=== PATIENT | female | born 1960 | race Caucasian/White ===

== ENCOUNTER → 2017-07-09 | Outpatient (CLI) | payer OTHER ==
[~2017-07-09] MED LIST: ACID REDUCER200 MG PO; ACYCLOVIR 400400 MG PO; AMITRIPTYLINE H10 M3 PO; COZAAR 25 MG TA25 MG PO; EFFEXOR XR75 MG PO; HYDROCODONE-AP1 EAC6 PO; HYDROXYCHLOROQ200 M1 PO; LEFLUNOMIDE PO; MOBIC15 MG PO; NORCO 5-325 TA1 EACH PO; NORVASC2.5 M1 PO; NORVASC5 MG PO; TRAMADOL 50 MG50 MG PO; cbd oil; tumeric; vitamin d3
--- NOTE | 2017-07-22 14:36 | PAINCON ---
[facility] [address] [place] [address] PAIN MANAGEMENT CONSULTATION Name: SANDI ESPINOZA Room: [facility] Camelia#: [id number] Admission: 07/09/17 Attend Phys: Frank Metz MD Discharge: Date of : 62 Report #: [id number] THIS REPORT FOR: //name// CC: Humera Rosenthal DATE OF SERVICE: 07/09/2017 CHIEF COMPLAINT: "Pain in the legs. 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 She has been having pain and discomfort in the right L5-S1 distribution. She has undergone 3 epidural steroid injections. She has gleaned benefits from these. At this juncture, she continues to have pain, which is quite problematic. She is unable to engage in activities of daily living to any meaningful amount. 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 She has noticed that pain can be problematic when standing. She is having difficulty standing long enough to take a shower at home. Find that the Mobic and gabapentin are helpful. She rates her pain as a 3 when she is not doing much activity. She is having pain that continues to radiate down the right buttocks into the right calf with numbness and tingling. Notes a tightening sensation. She has attempted to do water aerobics. She continues to try stretching exercises. She is limited because of the significant pain and discomfort she continues to experience. Denies any change in bowel or bladder function. Finds that tramadol and hydrocodone have been helpful. Feels that the pain exacerbating factors are activity, cold temperatures, walking, sitting, standing, bending, and lifting. Feels that her medications can be helpful. Cold and heat have been helpful as well. ALLERGIES: DOXYCYCLINE. CURRENT MEDICATIONS: Acyclovir 400 mg daily, amitriptyline 10 mg at bedtime, Norvasc 5 mg daily, cimetidine 200 mg, hydrocodone/acetaminophen 5/325 one p.o. p.r.n. pain, hydroxychloroquine 200 mg/ Plaquenil b.i.d., Mobic 15 mg b.i.d., Ultram 50 mg at bedtime, Effexor XR 75 mg daily, multivitamins. PAIN CLINIC ASSESSMENT: 1. History of rheumatoid arthritis. 2. Height 5 feet 6 inches, weight 208 pounds, BMI is 33. 3. Vital signs, blood pressure 102/64, heart rate 104, respiratory rate 18, room air saturation 92, temperature 97.5. 4. Pain intensity 3/10 when resting. 5. Fall risk: The patient has not fallen [place] [address] PAIN MANAGEMENT CONSULTATION Name: SANDI ESPINOZA Room: [employer]#: [id number] Admission: 07/09/17 Attend Phys: Frank Metz MD Discharge: Date of : 62 Report #: [id number] 6. Blood thinners: The patient is not on a blood thinner. 7. History of hypertension: The patient is not being treated for hypertension. 8. Opioid therapy greater than 6 weeks: The patient has been taking hydrocodone intermittently. 9. Risk assessment tool: Pain impact score 59/70 in regards to general activity, mood, walking ability, work, relationships with others, sleep, enjoyment of life. 10. Recreational drug use: The patient denies use of recreational drugs. 11. Tobacco: The patient denies use of tobacco. 12. Alcohol: The patient denies use of alcoholic beverages. PHYSICAL EXAMINATION: GENERAL: The patient is a well-developed female, appears her stated age. Orientation: The patient is alert and oriented x 3. HEENT: Normocephalic, atraumatic. Extraocular eye muscles intact. Normal hearing. No significant nasal complaints. Moist buccal membranes. NECK: Without JVD or adenopathy. LUNGS: Clear to auscultation. HEART: Regular rate. ABDOMEN: Nontender. MUSCULOSKELETAL: Alignment appears within normal limits. The patient states she has a history of scoliosis. Gait: Appears normal. Back: Flexion, extension, left and right lateral rotation, left and right lateral bending cause some increased discomfort in the low back area. Straight leg raise on the right is positive. Muscle bulk in the lower extremities is within normal limits and preserved. IMPRESSION: 1. Symptomatic lumbar radiculopathy improved for about 3 weeks after epidural steroid injections. The patient has noted a return of her pain and rates it as 3/10. Has some difficulty walking for any length of time. Has trouble standing for a prolonged period of time. 2. Displacement of lumbar intervertebral disk with radiculopathy. 3. Lumbosacral spondylosis with radiculopathy. 4. Lumbar degeneration. 5. Chronic pain. 6. Depression. 7. Rheumatoid arthritis. 8. Osteoarthritis. 9. Knee pain. 10. Hypertension. 11. History of eye irritation. RECOMMENDATIONS: We discussed treatment options with the patient. At this juncture, she feels that she would like to continue with medical management. She has continued to try physical therapy. [place] [address] PAIN MANAGEMENT CONSULTATION Name: SANDI ESPINOZA Room: [facility]#: [id number] Admission: 07/09/17 Attend Phys: Frank Mezt MD Discharge: Date of : 62 Report #: [id number] medical regimen of hydrocodone and tramadol. She may consider an epidural steroid injection again in the future as her insurance allows. She continues to have pain and discomfort, which radiates down to the left leg with some numbness, tingling in her feet on the right. A script for her medications of hydrocodone 5/325 one p.o. daily, amitriptyline 10 mg daily, tramadol 50 mg 1 p.o. b.i.d. have been rewritten. We would like to thank you for letting us participate in her care. We hope she continues to improve. <ELECTRONICALLY SIGNED> By: Frank Metz MD 07/22/17 1436 [id number]. Asher Metz MD /nt
== END ==
LOC: M.PC 02:36
DX: M51.16 Intervertebral disc disorders with radiculopathy, lumbar region (principal); M47.27 Other spondylosis with radiculopathy, lumbosacral region; G89.29 Other chronic pain; F32.9 Major depressive disorder, single episode, unspecified; M06.9 Rheumatoid arthritis, unspecified; M25.569 Pain in unspecified knee; I10 Essential (primary) hypertension

== ENCOUNTER → 2017-10-27 | Outpatient (CLI) | payer OTHER ==
--- NOTE | 2017-11-05 15:18 | PAINCON ---
[facility] [address] [place] [address] PAIN MANAGEMENT CONSULTATION Name: SANDI ESPINOZA [facility]#: [id number] Admission: 10/27/17 Attend Phys: Frank Metz MD Discharge: Date of : 62 Report #: [id number] THIS REPORT FOR: //name// CC: Humera Metz DATE OF SERVICE: 10/27/2017 CHIEF COMPLAINT: "I am still having some pain in my back. I am going to go see a surgeon." FOLLOWUP HISTORY: The patient is a 57-year-old female who has been followed in the pain clinic because of lumbar radiculopathy. The patient has pain and discomfort in the L5-S1 distribution. She has undergone epidural steroid injections. She has gleaned benefits from these. At this juncture, she continues to have some pain and discomfort in her back. States that she has a history of spinal rotation in her back. States that she has been told if it gets greater than 45 degrees, she may have to have rodding of her back. She feels that her current medications of amitriptyline, tramadol and hydrocodone are beneficial. Rates her pain as a 0 when sitting. Notes that the pain increases to 5 while walking, increased to 8 when climbing stairs. Prolonged standing is still quite problematic. She has attempted to use water aerobics to help with her pain. Continues stretching exercises. Denies any new bowel or bladder function/dysfunction. Feels that tramadol and hydrocodone are helpful. Notes that activities of daily living such as walking, sitting, standing, bending and lifting are problematic. Feels that her medications as well as heat at times is beneficial. No problems with her mentation. She is scheduled to see a back surgeon on 11/12 at [place]. ALLERGIES: DOXYCYCLINE. CURRENT MEDICATIONS: Acyclovir 400 mg daily, amitriptyline 10 mg at bedtime, Norvasc 5 mg daily, cimetidine 200 mg, hydrocodone/acetaminophen 5/325 one p.o. p.r.n., hydroxychloroquine 200 mg/Plaquenil b.i.d., Mobic 15 mg b.i.d., Ultram 50 mg at bedtime, Effexor 75 mg daily, multivitamins. PAIN CLINIC ASSESSMENT: 1. History of rheumatoid arthritis. 2. Height 5 feet 6 inches, weight 207 pounds, BMI is 33.4. 3. Vital signs: Blood pressure 125/79, heart rate 108, respiratory rate 16, room air saturation 98%, temperature 98.3. 4. Pain intensity 5 walking, 8 climbing stairs, 0 at rest. 5. Fall risk. The patient has not fallen in the last 3 months. 6. Blood thinner. The patient is not on a blood thinning medication. 7. History of hypertension. The patient is being treated for hypertension. 8. Opioid therapy greater than 6 weeks. [place] [address] PAIN MANAGEMENT CONSULTATION Name: SANDI ESPINOZA [facility] [id number] Admission: 10/27/17 Attend Phys: Frank Metz MD Discharge: Date of : 62 Report #: [id number] therapy from the pain clinic. She gets her medication from one source. 9. Risk assessment tool. 10. Functional assessment tool. 11. Recreational drug use. Denies use of recreational drugs. 12. Tobacco: The patient denies use of tobacco. 13. Alcohol monthly. PHYSICAL EXAMINATION: GENERAL: The patient is well-developed, well-nourished female. She appears her stated age. She is alert and oriented x 3. Speech is fluent. HEENT: Normocephalic, atraumatic. Extraocular eye muscles intact. Sclerae nonicteric. Hearing within normal limits. Mucous membranes are moist. NECK: Without JVD or adenopathy. LUNGS: Clear to auscultation. HEART: Regular rate. ABDOMEN: Nontender. MUSCULOSKELETAL: Alignment within normal limits. The patient does have a history of scoliosis. Gait appears normal. Flexion and extension, left and right lateral rotation, left and right lateral bending cause some increased pain and discomfort in the low back area. Muscle bulk is judged to be symmetrical and strength 5/5 for the lower extremities. IMPRESSION: 1. History of symptomatic lumbar radiculopathy, improved after epidural steroid injections. 2. Displacement of lumbar and/or intervertebral disk with radiculopathy. 3. Lumbosacral spondylosis with radiculopathy. 4. Lumbar degeneration. 5. Chronic pain. 6. Depression. 7. Rheumatoid arthritis. 8. Osteoarthritis. 9. Knee pain. 10. Hypertension. 11. History of eye irritation. 12. Scoliosis -- The patient is to see her back surgeon at [place] on 11/12/2016. RECOMMENDATIONS: We discussed treatment options with the patient. At this juncture, she feels that the hydrocodone is helpful. She feels that the amitriptyline is beneficial as well. We would like to continue with the tramadol. She does not have any problems with these medications, would like to continue their use. She continues to have pain, which is problematic. She has determined that it will be reasonable at this juncture to follow up with a back surgeon. She was told that if her rotation became greater than 45 degrees, surgery might be eminent. Hopefully, this will not be necessary. She was told [address] [place] [address] PAIN MANAGEMENT CONSULTATION Name: SANDI ESPINOZA Rick Room: [facility]#: [id number] Admission: 10/27/17 Attend Phys: Frank Metz MD Discharge: Date of : 62 Report #: [id number] that her problem is genetic. She states that a cousin of her has had similar problems and has had good result. She would like to have her medications renewed. She will follow up in the future as needed. We would like to thank you for letting us participate in her care. We hope she continues to improve. A script for hydrocodone, amitriptyline and tramadol were written. We would like to thank you for letting us participate in her care. We hope she continues to improve. <ELECTRONICALLY SIGNED> By: Frank Metz MD 11/05/17 1518 1411 [id number]. Asher Metz MD /nt
== END ==
LOC: M.PC 02:49
DX: M47.27 Other spondylosis with radiculopathy, lumbosacral region (principal); M51.16 Intervertebral disc disorders with radiculopathy, lumbar region; G89.29 Other chronic pain; I10 Essential (primary) hypertension; M19.90 Unspecified osteoarthritis, unspecified site; M06.9 Rheumatoid arthritis, unspecified; F32.9 Major depressive disorder, single episode, unspecified

== ENCOUNTER → 2018-02-25 | Outpatient (CLI) | payer OTHER ==
--- NOTE | 2018-03-24 16:08 | PAINCON ---
[facility] [address] [place] [address] PAIN MANAGEMENT CONSULTATION Name: SANDI ESPINOZA Room: [facility] Camelia#: [id number] Admission: 02/25/18 Attend Phys: Frank Metz MD Discharge: Date of : 62 Report #: [id number] THIS REPORT FOR: //name// CC: Humera Metz DATE OF SERVICE: 02/25/2018 CHIEF COMPLAINT: Pain in the low back, hips, and buttocks. HISTORY: The patient is a 58-year-old female, who has been followed in the pain clinic because of chronic low back, hip, and buttocks pain. The patient states that her injections have been helpful in the past. She notes that they are less effective at this juncture. She notes that she has been, "hurting worse." She is considering a surgical intervention. As you may recall, she has some problems with scoliosis. She is thinking about undergoing surgery during the summer, which would give her some time to recuperate. She has been told that it may be beneficial, may ease some of the pain and discomfort, which she is experiencing. She notes that her pain is 0 when sitting, increases to 5-8 when walking and 8 when climbing stairs. Prolonged standing is quite problematic. She has continued to try water aerobics. She continues to stretch and exercise. She denies any bowel or bladder dysfunction. She feels that her tramadol and hydrocodone are helpful. She feels the medications can be beneficial. She is scheduled to see a back surgeon at [place] in the future. CURRENT MEDICATIONS: Acyclovir 400 mg daily, amitriptyline 10 mg at bedtime, Norvasc 5 mg daily, cimetidine 200 mg, hydrocodone 5/325, hydroxychloroquine/Plaquenil 200 mg b.i.d., Mobic 15 mg. Ultram 50 mg at bedtime, Effexor 75 mg, and multivitamins. ALLERGIES: THE PATIENT IS ALLERGIC TO DOXYCYCLINE. PAIN CLINIC ASSESSMENT AND PQRS: 1. History of rheumatoid arthritis, has noted some changes in her fingers, osteoarthritic changes in the back with scoliosis. 2. Pain score is 5/10. 3. Fall history: The patient has not fallen in the last 3 months. 4. Blood thinner. The patient is not on a blood thinning medication. 5. Hypertension. The patient is not being treated for hypertension. 6. Opioids greater than 6 weeks. The patient is receiving opioid medication from one source, the pain clinic. 7. Risk assessment tool, low for opioid use. 8. Functional assessment tool. 9. Recreational drug use. The patient denies use of recreational drugs. 10. Tobacco: The patient denies use of tobacco. 11. Alcohol: [place] [address] PAIN MANAGEMENT CONSULTATION Name: SANDI ESPINOZA Room: [facility]#: [id number] Admission: 02/25/18 Attend Phys: Frank Metz MD Discharge: Date of : 62 Report #: [id number] PHYSICAL EXAMINATION: GENERAL: The patient is a well-developed and well-nourished white female. She appears her stated age. She is alert and oriented x 3. Height is 5 feet 6 inches, weight is 207 pounds, and BMI is 33.5. VITAL SIGNS: Blood pressure is 144/84, heart rate is 91, respiratory rate is 16, room air saturation is 95%, and temperature is 98.1. HEENT: Normocephalic, atraumatic. Extraocular eye muscles intact. Sclerae nonicteric. Mucous membranes are moist. NECK: Without adenopathy or JVD. LUNGS: Clear to auscultation. HEART: Regular rate. ABDOMEN: Nontender. MUSCULOSKELETAL: The patient does have a history of scoliosis. Gait appears normal. Flexion and extension, left and right lateral rotation, left and right lateral bending. She notes some increased pain and discomfort in the low back area. Muscle bulk is judged to be symmetrical and strength is 5/5 for the lower extremity. IMPRESSION: 1. History of symptomatic lumbar radiculopathy, improved with epidural steroid injections. 2. Displacement of lumbar intervertebral disk with radiculopathy. 3. Sacral spondylosis with radiculopathy. 4. Lumbar degeneration. 5. Chronic pain. 6. Depression. 7. Rheumatoid arthritis. 8. Osteoarthritis. 9. Knee pain. 10. Hypertension. 11. History of eye irritation. 12. Scoliosis The patient to see a back surgeon in the near future with possibility of undergoing surgery in the summer months. RECOMMENDATIONS: We have discussed treatment options with the patient. At this juncture, we will continue with her current medication of hydrocodone and tramadol. She feels that the amitriptyline is helpful as well. She will call us if she has any problems or concerns. We would like to thank you for letting us to participate in her care. We hope she continues to improve. <ELECTRONICALLY SIGNED> By: Frank Metz MD 03/24/18 1608 1540 [id number]. Asher Metz MD /PMT
== END ==
LOC: M.PC 05:36
DX: M51.16 Intervertebral disc disorders with radiculopathy, lumbar region (principal); M47.898 Other spondylosis, sacral and sacrococcygeal region; M41.86 Other forms of scoliosis, lumbar region; M19.90 Unspecified osteoarthritis, unspecified site; M06.9 Rheumatoid arthritis, unspecified; G89.29 Other chronic pain; M25.561 Pain in right knee; I10 Essential (primary) hypertension; F32.9 Major depressive disorder, single episode, unspecified; Z79.899 Other long term (current) drug therapy